=== PATIENT | female | born 1970 | race Caucasian/White ===

== ENCOUNTER 2020-10-29 11:56 | Emergency (ER) | payer OTHER ==
[2020-10-29 12:43] LABS: BASOPHIL 0.2 % (0-2); EOSINOPHIL 0 % (0-5); HCT 37.5 % (37.0-47.0); HGB 12.5 g/dl (12.5-16.0); LYMPHOCYTE 10.1 % (15-48); MCH 30.8 pg (25.0-31.0); MCHC 33.3 g/dL (32.0-36.0); MCV 92.4 fL (78.0-100.0); MONOCYTE 10.6 % (0-12); MPV 9.3 fL (6.0-9.5); NEUTROPHIL 78.9 % (41-80); NRBC 0; PLT 218 K/uL (150-400); RBC 4.06 M/uL (4.20-5.40); RDW 13.5 % (11.5-14.0); WBC 9.7 K/uL (4.0-10.5)
[2020-10-29 12:45] LABS: BILIRUBIN NEGATIVE (NEGATIVE); BLOOD 2+ Ery/uL (NEGATIVE); CLARITY CLEAR (CLEAR); COLOR YELLOW (YELLOW); GLUCOSE (U) NORMAL (NORMAL); LEUKOCYTES TRACE Leu/uL (NEGATIVE); NITRITE NEGATIVE (NEGATIVE); PROTEIN NEGATIVE (NEGATIVE); SPECIFIC GRAVITY 1.015 (1.001-1.030); pH 6.5 (5.0-9.0)
[2020-10-29 12:58] LABS: ALBUMIN 3.3 g/dL (3.4-5.0); BILIRUBIN - TOTAL 0.4 mg/dL (0.2-1.0); CREATININE 0.53 mg/dL (0.51-0.95); GLOBULIN (CALCULATION) 3.4 g/dL; POTASSIUM 3.7 mmol/L (3.5-5.1); TOTAL PROTEIN 6.7 g/dL (6.4-8.2)
[2020-10-29 13:06] LABS: BACTERIA TRACE
[2020-10-29] MEDS ORDERED: BACTRIM DS TAB1 EACH PO (16:28)
[2020-10-29] MEDS ORDERED: NORCO 5-325 TA1 EACH PO (16:28)
== END 2020-10-29 17:08 | disposition home or self-care (01) ==
LOC: FER 11:56
PROVIDERS: Emergency Medicine
DX: N39.0 Urinary tract infection, site not specified (principal); K21.9 Gastro-esophageal reflux disease without esophagitis; Z90.49 Acquired absence of other specified parts of digestive tract; Z79.899 Other long term (current) drug therapy
CPT/HCPCS: 36415; 80053; 81001; 82150; 85025; 87088; J0696; J1885; J2270; J2405; J7030